=== PATIENT | female | born 1960 | race Caucasian/White ===

== ENCOUNTER 2023-09-11 05:59 | Day surgery (SDC) | payer OTHER ==
[2023-09-08 11:19] VITALS: BMI 28.1
[2023-09-11 07:37] VITALS: RESP 18
[2023-09-11 08:34] VITALS: TEMP 97.8
[2023-09-11 09:03] VITALS: PULSE 52
[2023-09-11 09:05] VITALS: BP 152/98
== END 2023-09-11 09:17 | disposition home or self-care (01) ==
LOC: JASU-ENDO 05:59
PROVIDERS: ATTEND Internal Medicine Gastroenterology
PROC: 0DJD8ZZ Inspection of Lower Intestinal Tract, Via Natural or Artificial Opening Endoscopic (ICD-10-PCS; principal; 2023-09-11 08:00)
DX: Z12.11 Encounter for screening for malignant neoplasm of colon (principal); K64.8 Other hemorrhoids; K92.1 Melena; Z86.010 Personal history of colon polyps